=== PATIENT | female | born 1935 | race Caucasian/White ===

== ENCOUNTER 2018-09-30 13:23 | Observation (INO) | payer MEDICARE, BC ==
[~2018-09-30 13:23] MED LIST: DEXAMETHASONE SOD PHOSPHATE 10 MG/ML 1 ML VIAL IV ONE; HYDROmorphone 0.5 MG/0.5 ML SYRINGE IVP PRN; MIDAZOLAM (PF) 2 MG/2 ML VIAL IV PRN; ONDANSETRON 4 MG/2 ML VIAL IVP ONE; ceFAZolin IN SWFI 2 GM/20 ML SYRINGE IVP ONE
[2018-09-30 13:48] LABS: Glucose,Whole Blood 97 mg/dL (75-99)
[2018-09-30] MEDS ORDERED: fentaNYL (PF) 50 MCG/ML 2 ML AMP IVP ONE (13:53)
[2018-09-30] MEDS ORDERED: LACTATED RINGERS 1,000 ML IV ONE ×2 (13:53→18:24)
[2018-09-30] MEDS ORDERED: MIDAZOLAM (PF) 2 MG/2 ML VIAL IVP ONE (13:53)
[2018-09-30] MEDS ORDERED: LIDOCAINE 1% 20 ML VIAL (10MG/ML) FOR IV START INTRADERMA ONE (13:54)
--- NOTE | 2018-09-30 15:02 | P.ONQ ---
Anesthesiology Proc Note - PNB - Peripheral Nerve Block Performed Left Infraclavicular Single Time Out Performed: Yes Procedure Start Time: 13:53 Indication: Acute Post-Operative Pain Sedation Type: Sedate with meaningful contact maintained Preparation: Sterile Prep Position: Supine Catheter: None Needle Types: Other (see comment) (deepali) Needle Size: 50mm (2") Needle Gauge: 21 Technique: Ultrasound Injectate: 0.5% Ropivacaine (see comment for volume) (20) Blood Aspirated: No Pain Paresthesia on Injection Noted: No Resistance on Injection: Normal Events: Uneventful and Well Tolerated
[2018-09-30] MEDS ORDERED: LIDOCAINE 1% INJ 10MG/ML (20 ML MDV) ONE (17:42)
[2018-09-30] MEDS ORDERED: ROPIVACAINE 5 MG/ML 30 ML VIAL ONE (17:42)
[2018-09-30] MEDS ORDERED: MIDAZOLAM 2 MG/2 ML VIAL ONE (17:42)
[2018-09-30] MEDS ORDERED: PROPOFOL 10 MG/ML 20 ML VIAL IV ONE (17:42)
[2018-09-30] MEDS ORDERED: fentaNYL (PF) 50 MCG/ML 2 ML AMP ONE (17:42)
[2018-09-30] MEDS ORDERED: ePHEDrine SULFATE/0.9% NACL/PF 50 MG/5 ML SYRINGE IV ONE (17:42)
[2018-09-30] MEDS ORDERED: LIDOCAINE 1%-EPI 1:100,000 20 ML VIAL SUBMUCOSAL ONE (20:27)
[2018-09-30 22:45] VITALS: BMI 27.3
[2018-09-30] MEDS: LACTATED RINGERS 1,000 ML IV SCH (22:48)
[2018-10-01] MEDS: ceFAZolin IN SWFI 2 GM/20 ML SYRINGE IVP SCH ×2 (01:48→11:53)
[2018-10-01] MEDS: LACTATED RINGERS 1,000 ML IV SCH (03:35)
[2018-10-01] MEDS: oxyCODONE-APAP 5-325MG 1 EACH TAB PO PRN ×5 (04:49→20:11)
[2018-10-01] MEDS: HYDROmorphone 0.5 MG/0.5 ML SYRINGE IVP PRN ×3 (05:50→11:59)
[2018-10-01] MEDS ORDERED: NITROGLYCERIN SL TABS 0.4 MG TAB SUBLINGUAL PRN (10:33)
[2018-10-01] MEDS ORDERED: oxyCODONE ER 20 MG TAB.ER.12H PO STA (10:38)
[2018-10-01] MEDS: METOPROLOL TARTRATE 50 MG TAB PO SCH ×2 (11:10→20:07)
[2018-10-01] MEDS: LISINOPRIL 20 MG TAB PO SCH (11:10)
[2018-10-01] MEDS: NIFEdipine XL 30 MG TAB.ER.24 PO SCH (11:53)
[2018-10-01] MEDS: ISOSORBIDE DINITRATE 20 MG TAB PO SCH (11:53)
--- NOTE | 2018-10-01 13:25 | FL ---
Fluoroscopy HISTORY: Elbow fracture 1 minute 46 seconds fluoroscopy time supplied to the referring clinician. 8 intraoperative C-arm jose luis ges document the procedure. See dictated report from orthopedic surgery.
--- NOTE | 2018-10-01 13:26 | XR ---
Limited left elbow HISTORY: Fracture 8 intraoperative C-arm images document the procedure
--- NOTE | 2018-10-01 13:49 | P.OP ---
Date of Procedure: 09/30/18 Preoperative Diagnosis: 1. Left Monteggia variant fracture with displaced proximal ulna fracture and left radial head fracture Postoperative Diagnosis: 1. Left Monteggia variant fracture with displaced proximal ulna fracture and left radial head fracture Procedure(s) Performed: 1. Open reduction and internal fixation of left proximal ulna fracture 2. Exam under anesthesia and manual application of joint stress for radiography by physician - left elbow and left wrist 3. Application of long arm sugartong splint by physician Implants: Acumed olecranon plate with locking and cortical screws and one 3.0 mm lag screw Anesthesia: GETA, regional, local Surgeon: Guille Nelson Discharge Specialist #1: Inna Sloan Estimated Blood Loss (ml): 30 Condition: stable Disposition: PACU Indications for Procedure: The patient is an 83-year-old female who experienced a mechanical fall, resulting in a fractures of the left proximal ulna and radial head. Treatment options were discussed in the office and surgical stabilization was recommended. Risks and benefits were reviewed in the office and again in preop. Questions were invited and answered. The patient expressed understanding and wished to proceed with surgery. The operative site was confirmed and marked. Consent forms were signed. Description of Procedure: The patient was administered a regional nerve block by the anesthesia team then brought to the operating suite. The patient was positioned supine with the operative limb across the chest. All bony prominences were well padded. Anesthesia was administered uneventfully. Prophylactic IV antibiotics were administered. A tourniquet was placed on the left arm which was then prepped and draped in standard, sterile fashion. A timeout was performed which confirmed the patient, the operative side, the site and the procedure to be performed. All team members expressed agreement. The limb was exsanguinated with an Esmarch and the tourniquet was inflated. The elbow was initially examined under fluoroscopy. The fractures were reviewed from multiple angles. The radial head fracture showed some mild anterior angulation but no intra-articular step-off or significant joint space widening. The radial head was well aligned with the capitellum and PRUJ on all views. The elbow was then ranged and stressed under live fluoroscopy-no gross motion was seen at the radial head. Even with the ulna fractured, there was no clicking or crepitus with flexion or rotation. No further treatment for the radial head was deemed necessary. The distal radius was also was assessed from orthogonal views. No discrete fracture lines were identified. No visible motion was appreciated with passive range of motion under live fluoroscopy. The ulna fracture was still displaced and showed visible motion with stress and the decision was made to proceed with open reduction as planned. A midline posterior incision was marked over the proximal ulna, curving gently around the olecranon. The skin was incised sharply and full-thickness skin flaps were elevated, coagulating superficial vessels as needed. The subcutaneous border of the proximal ulna was palpated and the fracture site was identified. The periosteum was sharply incised and elevated. The primary fracture line was oblique at the metadiaphyseal level. There was a nondisplaced longitudinal split along the radial aspect of the distal fragment. The primary fracture extended along the proximal fragment, adjacent to the radial notch. The fracture site was gently opened with a freer and cleaned of hematoma and fibrous tissue. This was irrigated and manually reduced and held with reduction clamps. The appropriate plate was selected based on the fracture pattern and the patient's anatomy. This was clamped in place with reduction clamps. Provisional position and alignment of the plate and fracture were confirmed on orthogonal imaging. The plate was then secured to the bone with K wires. Cortical screws were drilled, measured and inserted to secure the plate distally. Locking screws were drilled, measured and inserted to secure the plate to the olecranon, confirming length and orientation on imaging. A 3.0 mm cortical screw was inserted across the primary fracture through the plate in [id number] fashion. The clamps and K wires were removed but widening of the fracture was noted on the radial side of the ulna, distal to the lesser sigmoid notch. The clamps were reapplied to hold the fracture reduced. A 3.0 mm cortical screw was inserted in [id number] fashion in an ulnar to radial direction to secure this fragment. This was placed posterior to the ulnar articulation with the radial head and was confirmed on orthogonal imaging. All clamps and K wires were removed. Final x-rays were obtained which revealed satisfactory reduction of the fracture. The elbow was then ranged under live fluoroscopy - no motion of the fracture fragments or fixation construct was appreciated. The elbow articulated smoothly without crepitus or laxity. The wound was thoroughly irrigated with normal saline. The periosteum was repaired over the plate with interrupted 0-Vicryl sutures. The tourniquet was released and hemostasis was obtained with electrocautery. The subcutaneous tissues were closed in layers with interrupted 2-0 Vicryl sutures. The incision was closed with 3-0 Nylon. Marcaine with epinephrine was injected into the driver bcutaneous tissues for adjunctive postoperative pain control and hemostasis. A sterile dressing was applied followed by a long arm sugartong splint with the forearm in neutral rotation. All sponge, needle and instrument counts were correct at the end of the case. The patient tolerated the procedure well and was taken to the recovery room in stable condition.
--- NOTE | 2018-10-01 14:01 | P.PN ---
Subjective Progress Note Date: 10/01/18 Patient was seen and examined at the bedside. She states the postop pain increased significantly after the block wore off. This has not been adequately controlled with Percocet and IV Dilaudid. She denies any numbness nausea or vomiting. Objective - Vital Signs Vital signs: Vital Signs Temp 98.1 F 10/01/18 07:00 Pulse 74 10/01/18 07:00 Resp 14 10/01/18 07:00 BP 190/76 10/01/18 07:00 Pulse Ox 99 10/01/18 07:00 Intake & Output 09/30/18 10/01/18 10/01/18 18:59 06:59 18:59 Intake Total 1500 50 516 Output Total 30 Balance 1470 50 516 Intake: IV 1500 50 Oral 516 Output: Estimated Blood Loss 30 Other: # Voids 3 1 - Exam The splint is in place. The plaster was found to be weak and allowing motion at the elbow and was removed. There is no shadowing or strikethrough on the dressings. There is mild, appropriate edema of the dorsal hand and fingers. She is able to actively open and close the hand without difficulty but has pain at the extremes of motion. Light touch sensation is subjectively intact and at baseline across the distal radial, median and ulnar nerve distributions. The hand is warm, dry and well-perfused with good capillary refill. A new plaster sugartong splint was applied Assessment and Plan Assessment: 1. POD #1 status post ORIF of left proximal ulna/Monteggia variant fracture 2. Hypertension Plan: I reviewed the intraoperative findings with the patient. The arm was elevated on a pillow and ice was applied. I encouraged her to continue working on digital range of motion. Her pain medication regimen was adjusted. We will wean her off the IV opioids and transition to only PO medications. The plan will be to discharge the patient home once adequate pain control is been achieved. Guille Nelson D.O. [facility] Time with Patient: Less than 30
[2018-10-01] MEDS ORDERED: HYDROmorphone 0.5 MG/0.5 ML SYRINGE IVP ONE (15:00)
[2018-10-01] MEDS: hydrALAZINE HCL 25 MG TAB PO SCH (20:06)
[2018-10-01] MEDS ORDERED: SERTRALINE 50 MG TAB PO SCH (21:00)
[2018-10-02] MEDS: oxyCODONE-APAP 5-325MG 1 EACH TAB PO PRN ×3 (00:20→13:30)
[2018-10-02] MEDS: LACTATED RINGERS 1,000 ML IV SCH (06:05)
[2018-10-02] MEDS ORDERED: LEVOTHYROXINE 25 MCG TAB PO SCH (06:30)
[2018-10-02 08:17] VITALS: BP 137/70; PULSE 67; RESP 14; TEMP 98.6
[2018-10-02] MEDS: NIFEdipine XL 30 MG TAB.ER.24 PO SCH (08:29)
[2018-10-02] MEDS: ISOSORBIDE DINITRATE 20 MG TAB PO SCH (08:29)
[2018-10-02] MEDS: hydrALAZINE HCL 25 MG TAB PO SCH (08:29)
[2018-10-02] MEDS: METOPROLOL TARTRATE 50 MG TAB PO SCH (08:29)
[2018-10-02] MEDS: LISINOPRIL 20 MG TAB PO SCH (08:29)
[2018-10-02] MEDS ORDERED: CLOPIDOGREL 75 MG TAB PO SCH (09:00)
[2018-10-02] MEDS ORDERED: ASPIRIN 81 MG PO SCH (09:00)
--- NOTE | 2018-10-02 09:20 | P.PN ---
Subjective Progress Note Date: 10/02/18 Chart reviewed. The patient was seen and examined at the bedside. Reports postop pain substantially improved. She states it is less intense and does not last as long. She has also noticed a bump on the outside of her left thigh but states this is not painful. Objective - Vital Signs Vital signs: Vital Signs Temp 98.6 F 10/02/18 08:17 Pulse 67 10/02/18 08:17 Resp 14 10/02/18 08:17 BP 137/70 10/02/18 08:17 Pulse Ox 90 L 10/02/18 08:17 Intake & Output 10/01/18 10/02/18 10/02/18 18:59 06:59 18:59 Intake Total 752 596 Balance 752 596 Intake: Oral 752 596 Other: # Voids 1 2 - Exam Left upper extremity: Splint is clean, dry and in good repair. Digital edema has improved. Patient is able to make a loose composite fist with minimal discomfort. She near-full active digital extension; demonstrates appropriate pain with additional passive stretch. The hand is warm, dry and well-perfused with good capillary refill. Firm, maturing ecchymosis/hematoma noted on proximal lateral thigh. No underlying fluctuance. Minimally tender to palpation Assessment and Plan Assessment: 1. POD #2 status post ORIF of left proximal ulna/Monteggia variant fracture 2. Hypertension - stable (1) Fracture of proximal end of left radius and ulna Current Visit: Yes Status: Acute Code(s): S52.102A - UNSP FRACTURE OF UPPER END OF LEFT RADIUS, INIT FOR CLOS FX; S52.002A - UNSP FRACTURE OF UPPER END OF L EFT ULNA, INIT FOR CLOS FX SNOMED Code(s): 390110854 Plan: The patient's pain is well-controlled on oral medications. She is tolerating a regular diet. Vital signs are stable. The patient will be discharged home this morning and will follow up outpatient in 10-14 days. Guille Nelson D.O. [facility]
--- NOTE | 2018-10-02 09:23 | P.DS ---
Providers Date of admission: 09/30/2018 Expected date of discharge: 10/02/18 Attending physician: Guille Nelson DO Primary care physician: Elie Barbosa - Discharge Diagnosis(es) (1) Fracture of proximal end of left radius and ulna Current Visit: Yes Status: Acute Hospital Course: The patient presented for operative treatment of a displaced left proximal ulna fracture. She was taken to the operating room and the fracture was stabilized. Please see operative report for full details of the procedure. She was admitted for observation and pain control. The pain level was fairly intense after the block wore off but steadily improved. Her hospital course was uneventful. At time of discharge, the patient's pain is well-controlled on oral medications. She is tolerating regular diet. Vital signs are stable. She is deemed fit for discharge home. Procedures: Open reduction and internal fixation of left proximal ulna fracture Patient Condition at Discharge: Good Plan - Discharge Summary Discharge Rx Participant: Yes New Discharge Prescriptions: New oxyCODONE-APAP 5-325MG [Percocet 5-325 mg] 1 each PO Q4HR PRN #60 tab PRN Reason: Pain Continue hydrALAZINE HCL [Apresoline] 25 mg PO BID Loperamide [Imodium] 2 mg PO QID PRN PRN Reason: loose stools Sertraline [Zoloft] 50 mg PO HS Levothyroxine Sodium [Synthroid] 25 mcg PO DAILY Clopidogrel [Plavix] 75 mg PO DAILY Aspirin 81 mg PO BID Metoprolol Tartrate [Lopressor] 100 mg PO BID Pravastatin Sodium [Pravachol] 20 mg PO HS Nitroglycerin Sl Tabs [Nitrostat] 0.4 mg SUBLINGUAL Q5M PRN PRN Reason: Chest Pain NIFEdipine XL [Procardia XL] 30 mg PO DAILY Melatonin 10 mg PO HS Lisinopril [Zestril] 40 mg PO DAILY Isosorbide Dinitrate 20 mg PO DAILY Calcium Carbonate [Calcium] 600 mg PO DAILY Discontinued predniSONE 5 mg PO Q2D Discharge Medication List Aspirin 81 mg PO BID 09/28/18 [History] Calcium Carbonate [Calcium] 600 mg PO DAILY 09/28/18 [History] Clopidogrel [Plavix] 75 mg PO DAILY 09/28/18 [History] Isosorbide Dinitrate 20 mg PO DAILY 09/28/18 [History] Levothyroxine Sodium [Synthroid] 25 mcg PO DAILY 09/28/18 [History] Lisinopril [Zestril] 40 mg PO DAILY 09/28/18 [History] Loperamide [Imodium] 2 mg PO QID PRN 09/28/18 [History] Melatonin 10 mg PO HS 09/28/18 [History] Metoprolol Tartrate [Lopressor] 100 mg PO BID 09/28/18 [History] NIFEdipine XL [Procardia XL] 30 mg PO DAILY 09/28/18 [History] Nitroglycerin Sl Tabs [Nitrostat] 0.4 mg SUBLINGUAL Q5M PRN 09/28/18 [History] Pravastatin Sodium [Pravachol] 20 mg PO HS 09/28/18 [History] Sertraline [Zoloft] 50 mg PO HS 09/28/18 [History] hydrALAZINE HCL [Apresoline] 25 mg PO BID 09/28/18 [History] oxyCODONE-APAP 5-325MG [Percocet 5-325 mg] 1 each PO Q4HR PRN #60 tab 10/01/18 [Rx] Follow up Appointment(s)/Referral(s): Guille Nelson DO [Medical Doctor] - 1 Week Activity/Diet/Wound Care/Special Instructions: Orthopedic Postoperative Discharge Instructions Ice & elevate the left elbow. Use pain medication as directed. No strenuous/forceful use of the hand. No lifting/gripping/pushing/pulling. Ok to use hand for light activities (eating/dressing/etc). Keep the splint/dressing dry. Cover with a plastic bag to shower. Perform finger [id number] exercises several times daily. Call as soon as possible to schedule a follow-up appointment with Dr. Nelson to be seen in approximately 10-14 days.
== END 2018-10-02 13:32 | disposition home or self-care (01) ==
LOC: OR 13:23 → 4SSUR 21:07 → OR 10-01 19:39 → 4SSUR 10-01 19:54
PROVIDERS: ADMIT Orthopaedic Surgery; ATTEND Orthopaedic Surgery
DX: S52.272A Monteggia's fracture of left ulna, initial encounter for closed fracture (principal); W19.XXXA Unspecified fall, initial encounter; I10 Essential (primary) hypertension
CPT/HCPCS: 24635; 64415; 73070; G0378 ×2; C1713; J2250 ×2; J1100; J2405; J2001; J3010; J2795; J2704; J1170; J0690 ×2